=== PATIENT | male | born 1960 | race Caucasian/White ===

== ENCOUNTER 2017-04-16 09:22 | Day surgery (SDC) | payer MEDICAID ==
[2017-04-16] MEDS ORDERED: LIDOCAINE 1% 2 ML INJ ONE (09:40)
[2017-04-16] MEDS ORDERED: LIDOCAINE 1% 2 ML INJ ID PRN (09:45)
[2017-04-16] MEDS ORDERED: LR 1,000 ML IV ONE (09:45)
--- NOTE | 2017-04-16 10:19 | PDANEPAE ---
ANE History of Present Illness Patient presents for colonoscopy ANE Past Medical History - Cardiovascular History Hx Hypertension: Yes Hx Arrhythmias: No Hx Chest Pain: No Hx Coronary Artery / Peripheral Vascular Disease: No Hx CHF / Valvular Disease: No Hx Palpitations: No - Pulmonary History Hx COPD: No Hx Asthma/Reactive Airway Disease: No Hx Recent Upper Respiratory Infection: No Hx Oxygen in Use at Home: No Hx Sleep Apnea: Yes Sleep Apnea Screening Result - Last Documented: Positive - Neurologic History Hx Cerebrovascular Accident: No Hx Seizures: No Hx Dementia: No - Endocrine History Hx Diabetes: No - Renal History Hx Renal Disorders: No - Liver History Hx Hepatic Disorders: No - Neurological & Psychiatric Hx Hx Neurological and Psychiatric Disorders: Yes Neurological / Psychiatric History Comment: DEPRESSION - Cancer History Hx Cancer: No - Congenital Disorder History Hx Congenital Disorders: No - GI History Hx Gastrointestinal Disorders: No - Other Health History Other Health History: NEG - Chronic Pain History Chronic Pain: No - Surgical History Prior Surgeries: HERNIA X2. FEMUR FX REPAIR. BLIND ONE EYE ANE Review of Systems - Exercise capacity METS (RN): 4 METS ANE Patient History - Allergies Allergies/Adverse Reactions: No Known Allergies Allergy (Unverified 05/21/14 06:56) - Home Medications Home medications: home medication list seen and reviewed Home Medications: Acyclovir [Zovirax 400 mg (RX)] 400 mg PO BID 05/21/14 [Last Taken 01/16/17] Fluoxetine HCl [Prozac 40 mg] 40 mg PO 05/21/14 [Last Taken 03/17/17] Amlodipine Besylate 04/01/17 [Last Taken 04/14/17] Losartan Potassium 04/01/17 [Last Taken 04/14/17] - NPO status NPO Status: no food or drink >8 hours NPO Since - Liquids (Date): 04/16/17 NPO Since - Liquids (Time): 03:00 NPO Since - Solids (Date): 04/15/17 NPO Since - Solids (Time): 09:00 - Anes Hx Anes Hx: no prior problems - Smoking Hx Smoking Status: Never smoked ANE Labs/Vital Signs - Vital Signs Blood Pressure: 138/87 Heart Rate: 71 Respiratory Rate: 16 O2 Sat (%): 94 Height: 182.88 cm Weight: 115.67 kg ANE Physical Exam - Airway Neck exam: increased neck circumference Mallampati Score: Class 3 Mouth exam: normal dental/mouth exam - Pulmonary Pulmonary: no respiratory distress - Cardiovascular Cardiovascular: regular rate and rhythym - ASA Status ASA Status: II ANE Anesthesia Plan Anesthesia Plan: GA with mask (rba discussed, patient agrees to proceed)
[2017-04-16] MEDS ORDERED: LR 500 ML IV PRN (10:55)
[2017-04-16] MEDS ORDERED: OXYCODONE/APAP 5/325 TAB PO PRN (10:55)
[2017-04-16] MEDS ORDERED: NALOXONE HCL 0.4 MG/ML INJ IVP PRN (10:55)
[2017-04-16] MEDS ORDERED: ONDANSETRON 4 MG/2 ML VIAL IVP PRN (10:55)
[2017-04-16] MEDS ORDERED: fentaNYL 100 MCG/2 ML INJ IVP PRN (10:55)
[2017-04-16] MEDS ORDERED: PROPOFOL/EMULSION 500 MG/50 ML BOTTLE IV ONE (10:56)
[2017-04-16] MEDS ORDERED: LIDOCAINE 2% 5 ML SDV ONE (10:56)
[2017-04-16] MEDS ORDERED: HYDROmorphONE/DILAUDID 4 MG TAB PO ONE (10:57)
--- NOTE | 2017-04-16 11:18 | PDGENHP ---
History & Physical Chief Complaint: Screening colonoscopy Relevant Physical Exam: GEN: NAD. Cardiac: RRR. Lungs: CTA B. Abd: Soft, nt, nd
[2017-04-16 11:53] VITALS: PULSE 69
--- NOTE | 2017-04-16 11:54 | POSTANESTH ---
Post Anesthetic Evaluation Cardiovascular Status: Normal, Stable Respiratory Status: Normal, Stable, Requires Airway Assist Level of Consciousness/Mental Status: Can Participate in Eval Pain Control: Adequate, Prn Tx Ordered Nausea/Vomiting Control: Adequate, Prn Tx Ordered Complications Possibly Related to Anesthesia: None Noted
--- NOTE | 2017-04-16 12:31 | POSTOPPROG ---
Post Op Note Date of Operation: 04/16/17 Surgeon: Martínez Amezcua Pre-op Diagnosis: screen colon cancer Post-op Diagnosis: sigmoid polyps s/p removal Indication: screen colon cancer Procedure: Colonoscop w/ snare and biopsy forceps Findings: Sigmoid colon polyps s/p removal Inf/Abcess present in the surg proc area at time of surgery?: No
--- NOTE | 2017-04-16 12:48 | GPN ---
[f rep st] PROCEDURE NOTE PREPROCEDURE DIAGNOSIS: Screening colonoscopy. POSTPROCEDURE DIAGNOSIS: Two small colon polyps, status post removal. PROCEDURE: Colonoscopy with snare polypectomy and colonoscopy with cold biopsy forceps. MEDICATIONS: Monitored anesthesia care. INDICATIONS: The patient is a 56-year-old gentleman with a family history of colon polyps and colon cancer who presents for screening colonoscopy. The risks and benefits of the procedure were discus sed with the patient. Consent obtained. Risks include, but not limited to, bleeding, perforation, risks related to sedation. The patient is ASA class 2. DESCRIPTION OF PROCEDURE: The adult colonoscope was advanced to the terminal ileum, which appears n ormal. The ileocecal valve appendiceal orifice, cecum, ascending colon, hepatic flexure, transverse colon, splenic flexure, descending colon appeared normal. There were 2 polyps in the sigmoid colon . One measures 4 mm, and it was removed with cold snare polypectomy and sent out to pathology. The 2nd polyp was a 2 mm sigmoid colon polyp, removed with cold biopsy forceps. The rectum was normal. Retroflexed views in the rectum were normal. IMPRESSION: Two polyps removed from the sigmoid colon, one with cold snare polypectomy and another one with biopsy forceps. Otherwise normal colonoscopy. RECOMMENDATIONS: 1. Discharge home with escort. 2. Advance diet as tolerated. 3. Repeat colonoscopy in 5 years secondary to family history. 4. Follow up the final biopsy results. Results available within 10 days. 5. Thank you for allowing me to participate in the care of your patient. Please do not hesitate to call with questions. /[id number]/MODL
[2017-04-16 13:13] VITALS: BP 124/77; RESP 14
[2017-04-16 14:12] VITALS: TEMP 97.5
[2017-04-16 14:34] VITALS: O2SAT 94
== END 2017-04-16 14:20 | disposition home or self-care (01) ==
LOC: FSGY 09:22
PROVIDERS: ATTEND Internal Medicine Gastroenterology
PROC: 0DBN8ZX Excision of Sigmoid Colon, Via Natural or Artificial Opening Endoscopic, Diagnostic (ICD-10-PCS; principal; 2017-04-16 11:00)
DX: Z12.11 Encounter for screening for malignant neoplasm of colon (principal); D12.5 Benign neoplasm of sigmoid colon; Z83.71 Family history of colonic polyps
CPT/HCPCS: J2704